=== PATIENT | female | born 1950 | race Caucasian/White ===

== ENCOUNTER 2022-01-05 12:18 | Inpatient (IN) | payer MEDICARE ==
[~2022-01-05] VITALS: Ht 167.6 cm; Wt 97.5 kg
[2022-01-05] VITALS (8 sets, daily range): BP systolic 160–216; BP diastolic 72–101
[2022-01-05 13:00] LABS: BASO % 0.4 % (0.0-1.0); EOS # 0.1 10*3/uL (0.0-0.4); EOS % 0.9 % (1.0-4.0); HEMATOCRIT 42.5 % (37.0-47.0); LYMPH # 0.5 10*3/uL (1.3-4.4); LYMPH % 8.1 % (27.0-41.0); MEAN CELL VOLUME 82.5 fl (81.0-99.0); MEAN CORPUSCULAR HGB 26.4 pg (27.0-31.0); MEAN PLATELET VOLUME 9.8 fl (9.6-12.3); MONO # 0.6 10*3/uL (0.1-1.0); MONO % 9.6 % (3.0-9.0); NEUT # 4.6 10*3/uL (2.3-7.9); NEUT % 80.8 % (47.0-73.0); PLATELET COUNT AUTOMATED 217 10*3/uL (130-400); RED BLOOD COUNT 5.15 10*6/uL (4.10-5.10); RED CELL DISTRI WIDTH 14.6 % (0-14.5); WHITE BLOOD COUNT 5.7 10*3/uL (4.8-10.8)
[2022-01-05 13:30] LABS: ALKALINE PHOSPHATASE 286 U/L (45-117); BUN 14 mg/dl (7-24); CHLORIDE 103 mmol/L (98-107); CREATININE 0.79 mg/dL (0.55-1.02); POTASSIUM 3.9 mmol/L (3.5-5.1); SGOT/AST 109 IU/L (3-35); SGPT/ALT 26 U/L (12-78); SODIUM 135 mmol/L (136-145); TOTAL PROTEIN 6.3 gm/dL (6.4-8.2)
[2022-01-05] MEDS ORDERED: METFORMIN HYDR500 MG PO (16:21)
[2022-01-05] MEDS ORDERED: METOPROLOL TAR100 M1 PO (16:21)
[2022-01-05] MEDS ORDERED: TRAMADOL HCL50 MG PO (16:21)
[2022-01-05] MEDS ORDERED: ENALAPRIL10 MG PO (16:22)
[2022-01-06] VITALS: BP 154/62
[2022-01-06 05:59] LABS: BUN 11 mg/dl (7-24); CHLORIDE 106 mmol/L (98-107); CHOLESTEROL 167 mg/dL (<200); POTASSIUM 3.8 mmol/L (3.5-5.1); SGOT/AST 99 IU/L (3-35); SGPT/ALT 23 U/L (12-78); SODIUM 140 mmol/L (136-145)
[2022-01-06 06:06] LABS: ALKALINE PHOSPHATASE 249 U/L (45-117); CREATININE 0.66 mg/dL (0.55-1.02); FREE T4 1.42 ng/dl (0.76-1.46); LDL CHOLESTEROL 108 mg/dL (9-159); TOTAL PROTEIN 5.6 gm/dL (6.4-8.2); TRIGLYCERIDES 152 mg/dl (<150)
[2022-01-06 06:10] LABS: BASO % 0.2 % (0.0-1.0); EOS # 0.1 10*3/uL (0.0-0.4); EOS % 1.8 % (1.0-4.0); HEMATOCRIT 38.9 % (37.0-47.0); LYMPH # 0.5 10*3/uL (1.3-4.4); LYMPH % 11.9 % (27.0-41.0); MEAN CELL VOLUME 84.4 fl (81.0-99.0); MEAN CORPUSCULAR HGB 26.2 pg (27.0-31.0); MEAN CORPUSCULAR HGB CONC 31.1 g/dl (33.0-37.0); MEAN PLATELET VOLUME 10.2 fl (9.6-12.3); MONO # 0.5 10*3/uL (0.1-1.0); MONO % 11.2 % (3.0-9.0); NEUT # 3.3 10*3/uL (2.3-7.9); NEUT % 74.7 % (47.0-73.0); PLATELET COUNT AUTOMATED 221 10*3/uL (130-400); RED BLOOD COUNT 4.61 10*6/uL (4.10-5.10); RED CELL DISTRI WIDTH 14.6 % (0-14.5); WHITE BLOOD COUNT 4.4 10*3/uL (4.8-10.8)
[2022-01-06 06:18] LABS: ACT PARTIAL THROMBO TIME 32.1 SECONDS (20.0-32.1); INTERNATIONAL NORM RATIO 1.1 (2.0-3.5)
[2022-01-06 07:52] LABS: VITAMIN D, 25-HYDROXY 90.2 ng/mL (30-100)
[2022-01-06 08:00] VITALS: BP 160/80
[2022-01-06 12:00] VITALS: BP 150/80
[2022-01-06 16:00] VITALS: BP 178/80
[2022-01-06 20:00] VITALS: BP 192/104
[2022-01-07] VITALS: BP 151/69
[2022-01-07 04:00] VITALS: BP 151/69
[2022-01-07 06:23] LABS: BUN 10 mg/dl (7-24); CHLORIDE 106 mmol/L (98-107); CREATININE 0.62 mg/dL (0.55-1.02); POTASSIUM 3.8 mmol/L (3.5-5.1); SODIUM 138 mmol/L (136-145)
[2022-01-07 06:35] LABS: BASO % 0.4 % (0.0-1.0); EOS # 0.1 10*3/uL (0.0-0.4); EOS % 1.5 % (1.0-4.0); HEMATOCRIT 36.4 % (37.0-47.0); LYMPH # 0.7 10*3/uL (1.3-4.4); LYMPH % 12.6 % (27.0-41.0); MEAN CELL VOLUME 83.5 fl (81.0-99.0); MEAN CORPUSCULAR HGB 26.1 pg (27.0-31.0); MEAN CORPUSCULAR HGB CONC 31.3 g/dl (33.0-37.0); MEAN PLATELET VOLUME 10.1 fl (9.6-12.3); MONO # 0.8 10*3/uL (0.1-1.0); MONO % 15.8 % (3.0-9.0); NEUT # 3.7 10*3/uL (2.3-7.9); NEUT % 69.1 % (47.0-73.0); PLATELET COUNT AUTOMATED 213 10*3/uL (130-400); RED BLOOD COUNT 4.36 10*6/uL (4.10-5.10); RED CELL DISTRI WIDTH 14.6 % (0-14.5); WHITE BLOOD COUNT 5.3 10*3/uL (4.8-10.8)
[2022-01-07 08:00] VITALS: BP 170/72
[2022-01-07 14:26] VITALS: BP 192/102
[2022-01-07 16:24] VITALS: BP 178/86
[2022-01-07] MEDS ORDERED: ATORVASTATIN CA40 M1 PO (16:28)
[2022-01-07] MEDS ORDERED: ASPIRIN ADULT L81 M2 PO (16:28)
[2022-01-07] MEDS ORDERED: ENALAPRIL20 MG PO (16:28)
[2022-01-07] MEDS ORDERED: NORVASC5 MG PO (16:28)
[2022-01-07 17:14] VITALS: BP 155/71
== END 2022-01-07 17:33 | disposition home health service (06) | DRG 281 ==
LOC: ED 12:18 → EDHOLD 15:45 → 5E 15:45
PROVIDERS: Internal Medicine; Student in an Organized Health Care Education/Training Program; ADMIT Internal Medicine; ATTEND Internal Medicine
PROC: 4A02XM4 Measurement of Cardiac Total Activity, External Approach (ICD-10-PCS; principal; 2022-01-07)
PROC: 3E073KZ Introduction of Other Diagnostic Substance into Coronary Artery, Percutaneous Approach (ICD-10-PCS; 2022-01-07)
DX: I16.1 Hypertensive emergency (principal); I21.4 Non-ST elevation (NSTEMI) myocardial infarction; E44.0 Moderate protein-calorie malnutrition; E87.2 Acidosis; E87.1 Hypo-osmolality and hyponatremia; S05.91XA Unspecified injury of right eye and orbit, initial encounter; S01.81XA Laceration without foreign body of other part of head, initial encounter; I10 Essential (primary) hypertension; M19.90 Unspecified osteoarthritis, unspecified site; E11.65 Type 2 diabetes mellitus with hyperglycemia; D72.819 Decreased white blood cell count, unspecified; E78.1 Pure hyperglyceridemia; S01.401A Unspecified open wound of right cheek and temporomandibular area, initial encounter; W18.39XA Other fall on same level, initial encounter; S51.811A Laceration without foreign body of right forearm, initial encounter; Y93.89 Activity, other specified; Y92.89 Other specified places as the place of occurrence of the external cause; Y99.8 Other external cause status; Z82.3 Family history of stroke; Z68.34 Body mass index [BMI] 34.0-34.9, adult